=== PATIENT | female | born 1990 | race Caucasian/White ===

== ENCOUNTER 2020-08-21 14:07 | Emergency (ER) | payer OTHER ==
[~2020-08-21] VITALS: Ht 165.1 cm; Wt 61.2 kg
[2020-08-21] MEDS ORDERED: SAVELLA50 MG PO (14:29)
[2020-08-21] MEDS ORDERED: ADDERALL 10 MG10 MG (14:29)
[2020-08-21] MEDS ORDERED: ATIVAN1 M1 PO (14:29)
[2020-08-21] MEDS ORDERED: KETO10TA2 PO (19:11)
[2020-08-21] MEDS ORDERED: PEPCID AC20 MG PO (19:11)
[2020-08-21] MEDS ORDERED: ORPHENADRINE C100 MG PO (19:11)
== END 2020-08-21 22:56 | disposition home or self-care (01) ==
LOC: ER 14:07
DX: S80.02XA Contusion of left knee, initial encounter (principal); S80.01XA Contusion of right knee, initial encounter; S30.0XXA Contusion of lower back and pelvis, initial encounter; S90.31XA Contusion of right foot, initial encounter; S70.01XA Contusion of right hip, initial encounter; W01.198A Fall on same level from slipping, tripping and stumbling with subsequent striking against other object, initial encounter; Y93.01 Activity, walking, marching and hiking; Y92.512 Supermarket, store or market as the place of occurrence of the external cause; Y99.8 Other external cause status

== ENCOUNTER 2021-06-10 15:58 | Emergency (ER) | payer OTHER ==
[~2021-06-10] VITALS: Ht 165.1 cm; Wt 62.1 kg
[~2021-06-10 15:58] MED LIST: ADDERALL 10 MG10 MG; ATIVAN1 M1 PO; KETO10TA2 PO; ORPHENADRINE C100 MG PO; PEPCID AC20 MG PO; SAVELLA50 MG PO
[2021-06-10] MEDS ORDERED: NORFLEX100MG PO (18:24)
[2021-06-10] MEDS ORDERED: KETO10TA2 PO (18:24)
== END 2021-06-10 19:04 | disposition home or self-care (01) ==
LOC: ER 15:58
DX: S29.8XXA Other specified injuries of thorax, initial encounter (principal); V49.88XA Car occupant (driver) (passenger) injured in other specified transport accidents, initial encounter; Y93.89 Activity, other specified; Y92.488 Other paved roadways as the place of occurrence of the external cause; Y99.8 Other external cause status